=== PATIENT | male | born 1970 | race Caucasian/White ===

== ENCOUNTER 2024-03-20 06:47 | Emergency (ER) | payer BC, SELFPAY ==
[2024-03-20 06:51] VITALS: PULSE 74; RESP 18; TEMP 36.8; O2SAT 97
[2024-03-20 06:53] VITALS: BP 118/77; PULSE 73; RESP 13; TEMP 36.8; O2SAT 97
--- NOTE | 2024-03-20 07:04 | RAD_ITS ---
STUDY: X-RAY CHEST REASON FOR EXAM: Male, 53 years old. syncope TECHNIQUE: PA and lateral views of the chest. COMPARISON: None. FINDINGS: The lungs are clear and expanded. There is no demonstrated pleural abnormality. Normal size heart. Normal mediastinum and evelia. Normal visualized pulmonary arteries. There is atherosclerotic calcification of the aortic arch with tortuosity. There are diffuse degenerative changes of the visualized thoracic spine. Normal visualized ribs, clavicles, and shoulders. There is no demonstrated abnormality of the visualized soft tissue structures of the upper abdomen. RAD/Chest PA and Lateral IMPRESSION: Degenerative changes, as described above. No demonstrated acute cardiopulmonary process. Electronically Signed: Emanuel Bonilla MD at 8:15 EDT ,
--- NOTE | 2024-03-20 07:14 | NURSING ---
NO OLD EKGS
[2024-03-20] MEDS: 0.9% Normal Saline (1000mL) 1,000 ML 1000 ML IV (07:17)
[2024-03-20 07:35] LABS: Absolute Lymphocyte Count 1.15 X10^3/uL (0.83-4.51); Absolute Neutrophil Count 6.6 X10^3/uL (2.0-7.7); Basophil# 0.04 X10^3/uL; Basophil% 0.5 % (0-1); Eosinophil# 0.07 X10^3/uL; Eosinophils% 0.8 % (0-5); Hematocrit 43.6 % (40-54); Hemoglobin 14.9 g/dL (13.0-16.5); Lymphocyte # 1.15 X10^3/ul (0.83-4.51); Lymphocyte % 13.4 % (19-41); Mean Corp Hgb Conc 34.2 g/dL (32-36); Mean Corpuscular Hgb 28.5 pg (27.0-32.0); Mean Corpuscular Volume 83.5 fL (80-94); Mean Platelet Vol. 10.5 fl (6.2-12.0); Monocyte# 0.67 X10^3/uL; Monocyte% 7.8 % (0-10); NRBC Flagged by Analyzer 0 % (0-5); Neutrophil # 6.63 X10^3/uL (2.7-7.7); Platelet Count 270 K/mm3 (150-450); RBC Distribution Width CV 12.5 % (11.6-14.6); RBC Distribution Width SD 37.6 fl (35.1-43.9); Red Blood Count 5.22 M/mm3 (4.6-6.2); White Blood Count 8.6 K/mm3 (4.4-11.0)
--- NOTE | 2024-03-20 07:44 | EDS_ITS ---
HPI History of Present Illness Chief Complaint: General Illness Informant: patient Narrative Narrative: Patient is a 53-year-old male who denies any past medical history (does report that he does not see a doctor) presenting with episode of syncope versus near syncope and vomiting. Patient states he is on day 40 fast. He states for 40 days he is only had water and what sounds like some salt and maybe some Gatorade. When asked why he started this fast he tells me just something he felt like he should do. It was not medically managed. He states that over the last week he has developed vomiting. He states he also is having hiccups and is getting chest discomfort from all of the vomiting. He has not had a bowel movement in 2 weeks but has been passing a lot of gas. Last night he decided to break the fast and try to have some soup broth, Gatorade and watermelon. This morning he was having further vomiting. He was in the shower and bent over and thinks he might of passed out for seconds. He thinks he might of bumped his head. He denies any headache or head pain. Denies a history of any abdominal surgeries. Denies any known cardiac history. Has had an approximate 30 pound weight loss from this fast. States that he thinks he is dehydrated and also has a bad taste in his mouth. No other complaints or concerns at this time. [facility] Medical History no medical history Home Medications ?Medication ?Instructions ?Recorded ?Last Taken ?Type ondansetron 4 mg disintegrating 4 mg PO Q8H PRN PRN Nausea #10 tabs 03/20/24 Unknown Rx tablet Allergy/AdvReac Type Severity Reaction Status Date / Time No Known Allergies Allergy Verified 03/20/24 06:54 Social History Smoking Status: Never smoker ROS [facility] ED Constitutional Constitutional ED: Reports other Details: lightheaded ; Denies chills or fever(s) Eyes Eyes: Denies blurry vision or change in vision ENT ENT ED: Denies rhinorrhea or sore throat Cardiovascular Cardiovascular: Denies chest pain Respiratory/Chest Respiratory/Chest: Denies cough or dyspnea Gastrointestinal Gastrointestinal: Reports nausea and vomiting; Denies abdominal pain Musculoskeletal Musculoskeletal: Denies arthralgias or myalgias Integumentary Denies rash Neurologic Neurologic: Denies paresthesias or weakness EXAM Physical Exam Const Vital Signs: 03/20/24 06:51 03/20/24 06:53 03/20/24 06:55 Temperature 98.3 F 98.3 F Temperature Source Oral Oral Pulse Rate 74 73 Pulse Rate [Lying] Pulse Rate [Sitting (for 1 minute prior to obtaining)] Pulse Rate [Standing (for 1 minute prior to obtaining)] Respiratory Rate 18 13 Respiratory Effort Normal Respiratory Pattern Normal Blood Pressure 118/77 Blood Pressure [Lying] Blood Pressure [Sitting (for 1 minute prior to obtaining)] Blood Pressure [Standing (for 1 minute prior to obtaining)] Blood Pressure Mean 90 Blood Pressure Mean [Lying] Blood Pressure Mean [Sitting (for 1 minute prior to obtaining)] Blood Pressure Mean [Standing (for 1 minute prior to obtaining)] Pulse Ox 97 97 Oxygen Delivery Method Room Air Room Air 03/20/24 08:15 03/20/24 09:00 03/20/24 11:00 Temperature Temperature Source Pulse Rate 64 73 Pulse Rate [Lying] 62 Pulse Rate [Sitting (for 1 minute prior to obtaining)] 69 Pulse Rate [Standing (for 1 minute prior to obtaining)] 85 Respiratory Rate 16 18 Respiratory Effort Respiratory Pattern Blood Pressure 83/73 L 112/80 Blood Pressure [Lying] 116/76 Blood Pressure [Sitting (for 1 minute prior to obtaining)] 114/77 Blood Pressure [Standing (for 1 minute prior to obtaining)] 104/86 H Blood Pressure Mean 76 90 Blood Pressure Mean [Lying] 89 Blood Pressure Mean [Sitting (for 1 minute prior to obtaining)] 89 Blood Pressure Mean [Standing (for 1 minute prior to obtaining)] 92 Pulse Ox 98 97 Oxygen Delivery Method Room Air Room Air Positive well nourished and well developed General Appearance ED: well developed and NAD HEENT Reports dry mucous membranes Mouth ED: Yes dry mucous membranes Mouth: dry mucous membranes Eyes PERRL and EOMs intact bilaterally Neck supple Chest Wall inspection of chest normal and palpation of chest normal Resp normal respiratory effort and clear to auscultation bilaterally Cardio regular rate and regular rhythm GI normal to inspection, nondistended, normoactive bowel sounds and non-tender Palpation: soft; Negative for tender or guarding Extremity normal to inspection General Extremety ED: Negative for edema General Extremity: Negative for edema Neuro oriented x3 Sensorium / Orientation: alert Motor Exam: general weakness Psych mental status grossly normal Skin no rashes or lesions noted and no wounds General Skin Exam: Negative for jaundice MDM MDM MDM Narrative Medical decision making narrative: Patient is evaluated for what sounds like a syncopal episode and vomiting. He has been undergoing 40-day fast and just started trying to reintroduce food yesterday. No other complaints or concerns at this time. Differential includes electrolyte abnormality, malnutrition, dehydration, orthostatic hypotension, ACS, pancreatitis and refeeding syndrome. Will check labs including CBC, troponin, CMP, magnesium, Phos and lipase. Also get a urinalysis. Will give IV fluids. Will obtain an EKG and a chest x-ray. Workup is largely negative. He is not having significant electrolyte abnormalities. His lipase is mildly elevated at 157 however he is not complaining of any epigastric abdominal pain. His could be reactive from his vomiting. Urinalysis does show 150 ketones as well as 5-10 white blood cells and 1+ bacteria. Will send for culture. On repeat evaluation patient is complaining of lower abdominal discomfort and I told nursing staff he has a headache. He states he just feels weak still. He did tolerate water. Will give a second liter of fluid as well as further p.o. challenge. If he tolerates this well does we can be discharged home with Zofran however he does not tolerate taking anything in by mouth besides water will perform CT of the abdomen pelvis for further evaluation. Patient reevaluated he states he is now feeling much better. Stable to tolerate Gatorade and saltine crackers. Will be discharged with a prescription of Zofran, referral for primary care doctor and instructions to advance his diet very slowly. Patient verbalized agreement of this plan. Discharged home in stable and improved condition. Lab Data Attestation: I reviewed the patient's lab results. Labs: Laboratory Results - last 24 hr 03/20/24 03/20/24 07:00 08:30 WBC 8.6 RBC 5.22 Hgb 14.9 Hct 43.6 MCV 83.5 MCH 28.5 MCHC 34.2 RDW Std Deviation 37.6 RDW Coeff of Charley 12.5 Plt Count 270 MPV 10.5 Immature Gran % (Auto) 0.500 Neut % (Auto) 77.0 H Lymph % (Auto) 13.4 L Mcdonough % (Auto) 7.8 Eos % (Auto) 0.8 Baso % (Auto) 0.5 Absolute Neuts (auto) 6.6 Absolute Lymphs (auto) 1.15 Nucleated RBC % 0 Sodium 138 Potassium 3.3 L Chloride 99 Carbon Dioxide 27.0 Anion Gap 12 BUN 12 Creatinine 0.94 Est GFR (MDRD) Af Amer 107 Est GFR (MDRD) Non-Af 89 BUN/Creatinine Ratio 12.7 Glucose 123 H Calcium 9.8 Phosphorus 2.8 Magnesium 2.0 Total Bilirubin 1.00 AST 16 ALT 27 Alkaline Phosphatase 54 Troponin I High Sens 4 Total Protein 7.6 Albumin 4.0 Globulin 3.6 Albumin/Globulin Ratio 1.1 Lipase 157 H Urine Color [place] Urine Clarity Sl. Cloudy Urine pH 6.0 Ur Specific [place] 1.015 Urine Protein 30 H Urine Glucose (UA) Normal Urine Ketones 150 A* Urine Occult Blood 10 H Urine Nitrite Negative Urine Bilirubin 3 H Urine Urobilinogen 12 H Ur Leukocyte Esterase 25 H Urine RBC 0-5 SEEN Urine WBC 5-10 SEEN Ur Squamous Epith Cells 0 SEEN Urine Bacteria 1+ Hyaline Casts 0-5 SEEN Urine Mucus 2+ Radiography Chest X-Ray - ED: 2 View, Read by ED Physician, Read by Radiologist and No Acute Disease Diagnostic Testing: Clinical Impression(s) from Imaging Studies Chest X-Ray 03/20/24 07:04 IMPRESSION: Degenerative changes, as described above. No demonstrated acute cardiopulmonary process. Electronically Signed: Emanuel Bonilla MD at 8:15 EDT Reading Location ID and State: [address] [place] [address] , Service support , Rhythm Strip Rhythm Strip: Sinus Rhythm Rate: 63 Ectopy: None EKG Initial EKG: Attestation: I personally reviewed and interpreted this EKG as follows: Interpretation: Sinus Rhythm Comments: Normal sinus rhythm at a rate of 63 bpm Normal axis Normal intervals Normal ST segments Discharge Plan Triage Chief Complaint: General Illness ED Provider: Hellen Bell Dx/Rx/DC Orders Clinical Impression: Syncope and collapse, Ketonuria Instructions: Dizziness Fainting Causes, ED Dehydration (Adult) Prescriptions: New ondansetron 4 mg tablet,disintegrating 4 mg PO Q8H PRN PRN (Reason: Nausea) Qty: 10 0RF Primary Care Provider: Care Physician,No Primary Referrals: Karyn Sher MD [Med Staff - [employer]] - As soon as possible Wally Claudio MD [Non-Staff] - Activity Restrictions/Additional Instructions: Continue to slowly advance your diet with simple sugars and simple carbohydrates until you are tolerating this well. Continue to push fluids and and things like Gatorade. Your workup today was largely normal. You did have a mild elevation of your lipase which could be from vomiting. If you develop upper abdominal pain or worsening vomiting please return to the emergency room. Your potassium was very mildly low but as you continue to increase your diet and add potassium to it it should normalize on its own. Print Language: Slovenian Disposition Disposition: Home, Self Care
[2024-03-20 08:01] LABS: ALB/GLOB Ratio 1.1 RATIO (0.9-2.4); AST(SGOT) 16 U/L (15-37); Alanine Aminotransfer ALT/SGPT 27 U/L (16-61); Alkaline Phosphatase 54 U/L (45-117); Anion Gap 12 (5-15); BUN 12 mg/dL (7-18); BUN/Creat Ratio 12.7 RATIO (10-20); Calcium,Total 9.8 mg/dL (8.5-10.1); Chloride 99 mmol/L (98-107); Creatinine, Serum 0.94 mg/dL (0.70-1.30); EST Glomerular Filtration Rate 89 mL/min (>60); Est Glom Filt Rate - Afr Amer 107 mL/min (>60); Globulin 3.6 g/dL (2.2-4.2); Glucose 123 mg/dL (74-106); Potassium 3.3 mmol/L (3.5-5.1); Protein, Total 7.6 g/dL (6.4-8.2); Sodium Level 138 mmol/L (136-145)
[2024-03-20 08:08] LABS: Phosphorus 2.8 mg/dL (2.5-4.9); Troponin-I HS 4 pg/mL (3.0-78.0)
[2024-03-20 08:15] VITALS: BP 104/86; BP 114/77; BP 116/76; PULSE 62; PULSE 69; PULSE 85
[2024-03-20 08:17] LABS: Lipase 157 U/L (13-75)
[2024-03-20 08:33] LABS: Squamous Epithelial Cells - UA 0 SEEN /hpf (0-5)
[2024-03-20 08:40] LABS: Color, Urine Amber (Yellow); Glucose, Dipstick Normal (Normal); Leukocyte Esterase-Dipstick 25 /ul (Negative); Nitrite-Dipstick Negative (Negative); Occult Blood-Urine 10 /ul (Negative); Protein-Dipstick 30 mg/dl (Negative); Specific Gravity, Urine 1.015 (1.002-1.030); Urine Clarity Sl. Cloudy (Clear); Urine Urobilinogen 12 mg/dl (Normal)
[2024-03-20 08:53] LABS: Ketone-Dipstick 150 mg/dl (Negative); Urine Bilirubin Dipstick 3 mg/dL (Negative)
[2024-03-20 09:00] VITALS: BP 83/73; PULSE 64; RESP 16; O2SAT 98
[2024-03-20 09:03] LABS: Bacteria 1+ /hpf (None Seen); Mucous, Urine 2+ /hpf (<or=2+); Red Blood Cells-Urine 0-5 SEEN /hpf (0-5); White Blood Cells 5-10 SEEN /hpf (0-5)
[2024-03-20 09:04] LABS: Hyaline Cast 0-5 SEEN /lpf (0-5)
[2024-03-20] MEDS: Ondansetron 4 MG/2 ML Vial IV (09:33)
[2024-03-20] MEDS: Ketorolac 15 MG/ML Vial IV (09:36)
[2024-03-20] MEDS: 0.9% Normal Saline (1000mL) 1,000 ML 999 ML IV (10:51)
[2024-03-20 11:00] VITALS: BP 112/80; PULSE 73; RESP 18; O2SAT 97
[2024-03-20 12:28] VITALS: BP 110/70; PULSE 87; RESP 17; TEMP 36.3; O2SAT 100
== END 2024-03-20 12:28 | disposition home or self-care (01) ==
PROVIDERS: Emergency Provider Emergency Medicine; Visit Provider Emergency Medicine
DX: R55 Syncope and collapse (principal); R11.2 Nausea with vomiting, unspecified; R51.9 Headache, unspecified; R10.30 Lower abdominal pain, unspecified; R82.4 Acetonuria
CPT/HCPCS: 71046; 80053; 81001; 83690; 83735; 84100; 84484; 85025; 87086; 93005; 96361; 96374; 96375; 99284; J7030; A4216; J2405